=== PATIENT | male | born 1930 | race African-American/Black ===

== ENCOUNTER 2018-09-14 17:57 | Emergency (ER) | payer MEDICARE, MEDICAID ==
[~2018-09-14] VITALS: Ht 172.7 cm; Wt 80.0 kg
[2018-09-14 18:45] VITALS: BP 94/69
== END 2018-09-14 19:26 | disposition home or self-care (01) ==
LOC: ER 17:57
DX: B02.9 Zoster without complications (principal); Z86.718 Personal history of other venous thrombosis and embolism
CPT/HCPCS: 99283